=== PATIENT | female | born 1950 ===

== ENCOUNTER 2018-03-20 16:13 | Outpatient (CLI) | payer OTHER | END 2018-03-20 16:14 | disposition home or self-care (01) | LOC: LAB 16:13 ==

== ENCOUNTER 2018-03-24 09:56 | Outpatient (CLI) | payer OTHER, MEDICAID | END 2018-03-24 09:57 | disposition home or self-care (01) | LOC: RAD 09:56 | DX: M79.604 Pain in right leg (principal); M79.605 Pain in left leg ==